=== PATIENT | male | born 1995 | race Caucasian/White ===

== ENCOUNTER 2018-11-10 15:05 | Inpatient (IN) | payer OTHER ==
[~2018-11-10] VITALS: Ht 180.3 cm; Wt 82.6 kg
--- NOTE | ~2018-11-10 | EKG ---
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
[2018-11-10 15:08] VITALS: BP 148/80
[2018-11-10 16:26] VITALS: BP 119/74
[2018-11-10 16:28] LABS: BASO % 0.2 % (0.0-1.0); EOS # 0.3 10*3/uL (0.0-0.4); EOS % 1.6 % (1.0-4.0); HEMATOCRIT 44.3 % (42.0-52.0); HEMOGLOBIN 14.1 g/dl (14.0-18.0); LYMPH # 3.7 10*3/uL (1.3-4.4); LYMPH % 22.2 % (27.0-41.0); MEAN CELL VOLUME 82.6 fl (80.0-94.0); MEAN CORPUSCULAR HGB 26.3 pg (27.0-31.0); MEAN CORPUSCULAR HGB CONC 31.8 g/dl (33.0-37.0); MEAN PLATELET VOLUME 8.7 fl (9.6-12.3); MONO # 0.9 10*3/uL (0.1-1.0); MONO % 5.6 % (3.0-9.0); NEUT # 11.6 10*3/uL (2.3-7.9); NEUT % 69.6 % (47.0-73.0); PLATELET COUNT AUTOMATED 260 10*3/uL (130-400); RED BLOOD COUNT 5.36 10*6/uL (4.50-5.90); RED CELL DISTRI WIDTH 13.4 % (0-14.5); WHITE BLOOD COUNT 16.7 10*3/uL (4.8-10.8)
[2018-11-10 16:44] LABS: ALBUMIN 3.7 gm/dl (3.1-4.5); ALKALINE PHOSPHATASE 81 U/L (45-117); BUN 17 mg/dl (7-24); CHLORIDE 104 mmol/L (98-107); CREATININE 0.79 mg/dL (0.70-1.30); POTASSIUM 4.4 mmol/L (3.5-5.1); SGOT/AST 25 IU/L (3-35); SGPT/ALT 66 U/L (12-78); SODIUM 140 mmol/L (136-145)
--- NOTE | 2018-11-10 17:00 | NUR ---
PATIENT DID NOT DISCLOSE THAT HE WAS FROM [facility] FOR DRUG ABUSE. THEY CALLED IN INQUIRE ABOUT HIS ADMISSION STATUS
--- NOTE | 2018-11-10 17:24 | NUR ---
PATIENT NOW STATES THAT HE DOES NOT WANT TO BE ADMITTED BECAUSE HE WAS APPROVED FOR A BED AT [facility] TOMORROW MORNING. AND WISHES TO BACK TO [facility]. RANDALL NOTIFIED SHE WILL BE IN TO TALK WITH PATIENT. PRIOR TO CONTACTING [facility]
--- NOTE | 2018-11-10 17:46 | NUR ---
[facility] CALLED TO UPDATE OF PATIENT WANTING TO SIGN OUT. THEIR COUNSELOR TRANSFERRED IN TO TALK WITH PATIENT
--- NOTE | 2018-11-10 18:03 | NUR ---
PATIENT STATING THAT HE IS STAYING BECAUSE OTHERWISE HE WILL BE HOMELESS
[2018-11-10 18:30] VITALS: BP 145/93
--- NOTE | 2018-11-10 18:45 | NUR ---
[facility] , under the services of SCOTT Rojas DO with a diagnosis of cellulitis. Chief complaint is pain lt elbow. Patient arrived via bed from ER. Monitor applied. Initial assessment completed. Vital signs taken and recorded. SCOTT ROJAS DO notified of admission to the unit. Orders received. See assessment for past medical history, medications and allergies. Patient and/or family oriented to unit. [facility] visitation policy reviewed. Clothing/patient valuable form completed. LILA FAY
--- NOTE | 2018-11-10 18:57 | NUR ---
Notified Dr. Overton that patient is a recovering addict. His last dose of Subutex was on at the [facility] in [place]. The [facility]'s number is .
--- NOTE | 2018-11-10 19:00 | NUR ---
Notified Dr. Overton that patient is requesting the nicotrol inhaler. See new orders.
[2018-11-10 20:00] VITALS: BP 125/73
[2018-11-11] VITALS: BP 110/53
--- NOTE | 2018-11-11 03:45 | NUR ---
PT PULLED OUT IV AND REFUSES TO BE STUCK. DR LILLY NOTIFIED THAT PT DOES NOT HAVE IV ACCESS. WILL REASSESS FOR WILLINESS IN THE MORNING.
--- NOTE | 2018-11-11 05:49 | NUR ---
PT ASKED ABOUT STARTING AN IV AND STILL REFUSES.
--- NOTE | 2018-11-11 07:30 | NUR ---
GLORIASCARLETL [id number] Please refer to the physician's history and physical for past medical history, comorbid conditions, and allergies. Diagnosis: ABSCESS CELLULITIS ENCOUNTER FOR INCISION AND Vasquez Score: , WOUND DESCRIPTIONS: Location of the wound: Left elbow Type of wound: surgical Thickness: Partial Size: 0.2cm x 0.9cm x 0.8cm Tunneling: none Undermining: none Sinus Tract: none Presence of Exudate: Serosanguineous Amount: Moderate Color: Red Odor: None Periwound Skin Appearance: Erythema, firmness Wound edges: approximated Pain (associated with wound): tender to touch How does patient state this happened? pt stated that they believe it was a spider bite in the ER but he feels it is probably MRSA. He stated that he used to use amphetamines and he would pick his skin open but he doesn't remember picking there. He also stated he doesn't remember injecting drugs near that site in over 2 months ago. He stated he is going to be discharged to [facility] in [place] and will receive treatment there. Surface the patient is resting on: Position Pro SKIN PREVENTION RECOMMENDATION: 1. Pressure redistribution support surface as appropriate 2. Elevate heels 3. Remove boots/TEDS every shift and reapply 4. Head of bed 30 degrees as tolerated 5. Assess nutrition and hydration 6. Manage moisture 7. Avoid the use of containment devices while in bed 8. Use absorptive products on surfaces limit layers of linens on bed 9. Turn and reposition every 1-2 hours in bed and every 1 hour in chair as tolerated 10. Weight shifts every 15 minutes while up in chair 11. Offloading with pillows or device to keep heels elevated off bed 12. Monitor skin at least every shift 13. Inspect under medical devices twice a day WOUND TREATMENT RECOMMENDATIONS: Dressing change: Cleanse left elbow with nss and lightly pack with maxorb rope and cover with dsd daily.
[2018-11-11 08:00] VITALS: BP 113/60
--- NOTE | 2018-11-11 08:29 | NUR ---
Per Dr. Javier, patient can remove equipment monitor phototypesetting to shower. Patient is refusing another IV be placed until after his shower.
--- NOTE | 2018-11-11 09:00 | NUR ---
case management attempted to visit with patient, patient was out of room for testing, will see at a later time
--- NOTE | 2018-11-11 09:20 | NUR ---
Dr. Javier notified of wound care recommendations.
[2018-11-11 12:00] VITALS: BP 132/77
--- NOTE | 2018-11-11 12:15 | NUR ---
Nutritional Support Services Note: Appetite is good for meals, eating 100%. Regular diet as ordered. Dx of cellulitis. No nutrition intervention needed at this time. Encourage 100% of po intake of all meals. Brigida Barrow Rdn Ld
--- NOTE | 2018-11-11 12:53 | NUR ---
Motrin given per patient request for c/o pain rated 6/10 in his left elbow. Will monitor.
--- NOTE | 2018-11-11 14:15 | NUR ---
Called Dr. Javier to notify him that patient is signing out AMA but there was no answer.
--- NOTE | 2018-11-11 14:20 | NUR ---
Dr. Javier returned my call and was informed of patient choosing to leave AMA.
--- NOTE | 2018-11-11 14:20 | NUR ---
Patient ambulated from unit with all belongings and refused photos of wound.
--- NOTE | 2018-11-11 14:22 | NUR ---
Notified nursing particle board supervisor that patient chose to leave AMA.
--- NOTE | 2018-11-11 14:31 | NUR ---
Patient chose to leave AMA. He was appreciative of all care. He said he was sure he wanted to go and that his mother was in the parking lot. He had all belongings with him.
== END 2018-11-11 14:31 | disposition left against medical advice (07) | DRG 872 ==
LOC: ED 15:05 → 4E 17:14 → EDHOLD 17:14 → 4E 17:59
PROVIDERS: Physician Assistant; ADMIT Internal Medicine
PROC: 0H9EXZZ Drainage of Left Lower Arm Skin, External Approach (ICD-10-PCS; principal; 2018-11-10)
DX: A41.9 Sepsis, unspecified organism (principal); L03.114 Cellulitis of left upper limb; L02.414 Cutaneous abscess of left upper limb; D72.810 Lymphocytopenia; Z53.21 Procedure and treatment not carried out due to patient leaving prior to being seen by health care provider; F15.10 Other stimulant abuse, uncomplicated; E66.3 Overweight; Z88.1 Allergy status to other antibiotic agents; Z71.6 Tobacco abuse counseling; Z88.2 Allergy status to sulfonamides; Z68.25 Body mass index [BMI] 25.0-25.9, adult